=== PATIENT | male | born 1990 | race Caucasian/White ===

== ENCOUNTER 2019-05-11 00:47 | Emergency (ER) | payer SELFPAY ==
[~2019-05-11] VITALS: Ht 175.3 cm; Wt 90.0 kg
[2019-05-11] MEDS ORDERED: ACETAMINOPHEN 325MG TABLET PO ONE (02:45)
[2019-05-11 05:27] VITALS: BP 145/87
== END 2019-05-11 05:28 | disposition home or self-care (01) ==
LOC: ER 00:47
DX: S02.2XXA Fracture of nasal bones, initial encounter for closed fracture (principal); Y04.0XXA Assault by unarmed brawl or fight, initial encounter; Y93.89 Activity, other specified; Y92.018 Other place in single-family (private) house as the place of occurrence of the external cause
CPT/HCPCS: 70486; 99284; Z7610